=== PATIENT | male | born 1945 ===

== ENCOUNTER 2024-10-06 03:17 | Inpatient (IN) | payer OTHER ==
[~2024-10-06] VITALS: Ht 177.8 cm; Wt 51.6 kg
[2024-10-06 04:14] LABS: BASOPHILS ABSOLUTE AUTO 0.05 K/mm3 (0.00-0.23); BASOPHILS PERCENT AUTO 0 % (0-2); EOSINOPHILS ABSOLUTE AUTO 0.63 K/mm3 (0.00-0.68); EOSINOPHILS PERCENT AUTO 5 % (0-6); Hemoglobin 14.2 g/dL (13.5-17.5); IMMATURE GRAN ABSOLUTE AUTO 0.03 K/mm3 (0.00-0.10); IMMATURE GRAN PERCENT AUTO 0 % (0-1); LYMPHOCYTES ABSOLUTE AUTO 3.17 K/mm3 (0.84-5.20); LYMPHOCYTES PERCENT AUTO 26 % (21-46); MONOCYTES PERCENT AUTO 6 % (4-13); Mean Corpuscular HGB 30.3 pg (26.0-34.0); Mean Corpuscular Volume 92 fL (80-100); Mean Platelet Volume 9.6 fL (9.1-12.4); NEUTROPHILS ABSOLUTE AUTO 7.72 K/mm3 (1.96-9.15); NEUTROPHILS PERCENT AUTO 63 % (41-73); Platelet Count 346 K/mm3 (150-400); RDW Coefficient Variation 14.4 % (11.7-14.2); RDW Standard Deviation 48.8 fL (35.1-46.3); Red Blood Cell Count 4.68 M/mm3 (4.30-5.90)
[2024-10-06 04:31] LABS: Albumin, Blood 3.6 g/dL (3.4-5.0); Bilirubin, Total 0.2 mg/dL (0.1-1.0); Bun/Creatinine Ratio 15.9 (12.0-20.0); Calcium, Blood 8.9 mg/dL (8.5-10.1); Creatinine, Blood 0.88 mg/dL (0.60-1.20); Globulin, Blood 3.5 g/dL (2.2-4.0); Potassium, Blood 3.8 mmol/L (3.5-5.5); Total Protein, Blood 7.1 g/dL (6.4-8.2)
[2024-10-06] MEDS ORDERED: Ipratropium/Albuterol SulF 2.5-0.5MG/3 ML Amp INH ONE (05:00)
[2024-10-06] MEDS ORDERED: Azithromycin 500 MG in NS 250 ML IV ONE (05:05)
[2024-10-06] MEDS ORDERED: CefTRIAXone Sodium 1,000 MG in NS 50 ML IV ONE (05:05)
[2024-10-06] MEDS ORDERED: Aspirin 81 MG Chew PO ONE (05:30)
[2024-10-06] MEDS ORDERED: Ipratropium/Albuterol SulF 2.5-0.5MG/3 ML Amp INH PRN (05:40)
[2024-10-06] MEDS ORDERED: Ondansetron HCl 2 MG / ML 2ML Vial IV PRN (05:40)
[2024-10-06] MEDS ORDERED: NS 1,000 ML IV SCH (05:45)
[2024-10-06] MEDS ORDERED: Remdesivir (EUA) 200 MG in NS 250 ML IV ONE (06:50)
[2024-10-06] MEDS ORDERED: FentaNYL Citrate 50 MCG/ML 2 ML Injection IV PRN (07:25)
[2024-10-06] MEDS ORDERED: Ketorolac Tromethamine 15mg Vial IV PRN ×2 (07:25→13:10)
[2024-10-06] MEDS ORDERED: Enoxaparin 40 MG/0.4 ML SYR SC SCH (09:00)
[2024-10-06] MEDS ORDERED: Azithromycin 500 MG in NS 250 ML IV SCH (09:00)
[2024-10-06 10:00] VITALS: BP 138/78
--- NOTE | 2024-10-06 10:00 | NUR ---
PT TO ROOM FROM ER. ON 2L NC.
[2024-10-06 14:40] LABS: Influenza A, PCR NEGATIVE (NEGATIVE); Influenza B, PCR NEGATIVE (NEGATIVE); Resp Syncytial Virus, PCR NEGATIVE (NEGATIVE); SARS-Cov-2 (COVID-19) PCR, MMC NEGATIVE (NEGATIVE)
[2024-10-06] MEDS ORDERED: PredniSONE 20 MG Tab PO SCH (16:00)
[2024-10-06 16:03] VITALS: BP 132/84
--- NOTE | 2024-10-06 18:00 | NUR ---
SHIFT SUMMARY PT IS A/OX4, INDEPENDENT IN THE ROOM. ON 2L NC, PT REPORTS RA AT BASELINE. ON TELE RUNNING NORMAL SINUS RYTHYM IN THE 70'S. RESP PANEL NEGATIVE. PT REPORTS IMPROVEMENT IN SOB SINCE ADMISSION. INFUSING NS @ 75 ML/HR X1 1 BAG PER MAR. PT REPORTS CHEST PRESSURE ACROSS HIS CHEST IN RELATION TO BREATHING PATTERN. PT IS PLEASANT AND COOPERATIVE WITH CARE.
--- NOTE | 2024-10-06 18:08 | NUR ---
PT REPORTS TAKING BLOOD PRESSURE MEDICATIONS AND CANCER MEDICATIONS AT HOME THOUGH HE IS UNSURE OF THE NAMES AND DOSING. PT'S TO BRING MEDICATION LIST TOMORROW MORNING.
[2024-10-06 20:35] VITALS: BP 135/90
[2024-10-06] MEDS ORDERED: Famotidine 20 MG Tab PO SCH (21:00)
[2024-10-06 23:50] VITALS: BP 130/75
[2024-10-07 03:43] VITALS: BP 135/75
--- NOTE | 2024-10-07 04:57 | NUR ---
SHIFT SUMMARY NOC PT A/O X 4. PLEASANT AND COOPERATIVE WITH CARE. VSS. PT ON 2L/NC SPO2 >95%. CP FROM COUGHING MANAGED PER EMAR. INFUSION OF NS X 1L COMPLETE. PT ON TELE SINUS RHYTHM WITH BBB IN 90'S, RHTYHM STRIP INTERPRETED AND VERIFIED BY RN. PT CURRENTLY RESTING WITH BED IN LOWEST POSITION, AND CALL LIGHT WITHIN REACH.
[2024-10-07 05:25] LABS: BASOPHILS ABSOLUTE AUTO 0.01 K/mm3 (0.00-0.23); BASOPHILS PERCENT AUTO 0 % (0-2); EOSINOPHILS PERCENT AUTO 0 % (0-6); Hematocrit 36.3 % (37.0-53.0); IMMATURE GRAN ABSOLUTE AUTO 0.02 K/mm3 (0.00-0.10); IMMATURE GRAN PERCENT AUTO 0 % (0-1); LYMPHOCYTES ABSOLUTE AUTO 1.09 K/mm3 (0.84-5.20); LYMPHOCYTES PERCENT AUTO 11 % (21-46); MONOCYTES ABSOLUTE AUTO 0.63 K/mm3 (0.16-1.47); MONOCYTES PERCENT AUTO 6 % (4-13); Mean Corpuscular HGB 30.5 pg (26.0-34.0); Mean Corpuscular HGB Conc 33.1 g/dL (31.5-36.5); Mean Corpuscular Volume 92 fL (80-100); NEUTROPHILS ABSOLUTE AUTO 8.26 K/mm3 (1.96-9.15); NEUTROPHILS PERCENT AUTO 83 % (41-73); Platelet Count 290 K/mm3 (150-400); RDW Coefficient Variation 14.4 % (11.7-14.2); Red Blood Cell Count 3.94 M/mm3 (4.30-5.90); White Blood Cell Count 10.01 K/mm3 (4.00-11.30)
[2024-10-07 06:11] LABS: Albumin, Blood 2.9 g/dL (3.4-5.0); Albumin/Globulin Ratio 0.9 (0.8-1.8); Bilirubin, Total 0.4 mg/dL (0.1-1.0); Bun/Creatinine Ratio 22.9 (12.0-20.0); Calcium, Blood 8.5 mg/dL (8.5-10.1); Creatinine, Blood 0.79 mg/dL (0.60-1.20); Globulin, Blood 3.3 g/dL (2.2-4.0); Potassium, Blood 4.2 mmol/L (3.5-5.5); Total Protein, Blood 6.2 g/dL (6.4-8.2)
[2024-10-07 07:31] VITALS: BP 121/79
[2024-10-07] MEDS ORDERED: Guaifenesin/Dextromethorphan Syrup 5 ML UDC PO PRN (07:35)
[2024-10-07] MEDS ORDERED: NUBEQA300 MG PO (09:14)
[2024-10-07] MEDS ORDERED: ATOR10 PO (09:15)
[2024-10-07] MEDS ORDERED: AMLO5 PO (09:16)
[2024-10-07] MEDS ORDERED: PRESERVISION A1 EAC1 PO (09:17)
[2024-10-07] MEDS ORDERED: Remdesivir (EUA) 100 MG in NS 250 ML IV SCH (12:00)
[2024-10-07] MEDS ORDERED: PRED20 PO (12:09)
[2024-10-07] MEDS ORDERED: FAMO20 PO (12:09)
[2024-10-07] MEDS ORDERED: Ventolin5 MG/1 ML INH (12:10)
[2024-10-07] MEDS ORDERED: AZIT250 PO (12:14)
[2024-10-07] MEDS ORDERED: SPIRIVA RESPIMAT4 G3 INH (12:15)
--- NOTE | 2024-10-07 12:57 | NUR ---
PT DISCHARGED TO HOME WITH . ALL VALUABLES RETURNED AND SENT HOME WITH THE PT. DISCHARGE INSTRUCTIONS PROVIDED AND EDUCATED ON AT TIME OF DISCHARGE.
== END 2024-10-07 12:33 | disposition home or self-care (01) | DRG 189 ==
LOC: ER 03:17 → ERHOLD 05:05 → MEDS 09:54
PROVIDERS: Emergency Medicine; Internal Medicine; ADMIT Internal Medicine
PROC: XW033E5 Introduction of Remdesivir Anti-infective into Peripheral Vein, Percutaneous Approach, New Technology Group 5 (ICD-10-PCS; principal; 2024-10-06)
DX: J96.01 Acute respiratory failure with hypoxia (principal); J44.1 Chronic obstructive pulmonary disease with (acute) exacerbation; Z99.81 Dependence on supplemental oxygen; J43.9 Emphysema, unspecified; Z86.16 Personal history of COVID-19
CPT/HCPCS: 0241U; 36415; 71045; 71260; 80053; 83605; 83880; 84484; 85025; 85730; 93005; 93010; 94640; 94664; 99285-25; A9270; J0248; J0456; J0696; J1650; J1885; J7030; J7050; J7512; Q9967

== ENCOUNTER 2024-12-06 15:28 | Observation (INO) | payer OTHER ==
[~2024-12-06] VITALS: Ht 175.3 cm; Wt 67.7 kg
[~2024-12-06 15:28] MED LIST: AMLO5 PO; ATOR10 PO; AZIT250 PO; FAMO20 PO; NUBEQA300 MG PO; PRED20 PO; PRESERVISION A1 EAC1 PO; SPIRIVA RESPIMAT4 G3 INH; Ventolin5 MG/1 ML INH
[2024-12-06 15:52] LABS: BASOPHILS ABSOLUTE AUTO 0.08 K/mm3 (0.00-0.23); BASOPHILS PERCENT AUTO 1 % (0-2); EOSINOPHILS ABSOLUTE AUTO 0.65 K/mm3 (0.00-0.68); EOSINOPHILS PERCENT AUTO 6 % (0-6); Hematocrit 39.9 % (37.0-53.0); Hemoglobin 12.8 g/dL (13.5-17.5); IMMATURE GRAN ABSOLUTE AUTO 0.03 K/mm3 (0.00-0.10); IMMATURE GRAN PERCENT AUTO 0 % (0-1); LYMPHOCYTES ABSOLUTE AUTO 2.35 K/mm3 (0.84-5.20); LYMPHOCYTES PERCENT AUTO 21 % (21-46); MONOCYTES ABSOLUTE AUTO 1.02 K/mm3 (0.16-1.47); MONOCYTES PERCENT AUTO 9 % (4-13); Mean Corpuscular HGB Conc 32.1 g/dL (31.5-36.5); Mean Corpuscular Volume 94 fL (80-100); NEUTROPHILS ABSOLUTE AUTO 7.32 K/mm3 (1.96-9.15); NEUTROPHILS PERCENT AUTO 64 % (41-73); NRBC ABSOLUTE 0.00 K/mm3 (0.00-0.02); NRBC Auto 0.0 /100 WBC (0.0-0.2); Platelet Count 307 K/mm3 (150-400); RDW Coefficient Variation 14.0 % (11.7-14.2); RDW Standard Deviation 47.9 fL (35.1-46.3)
[2024-12-06 16:14] LABS: Alanine Aminotransfer (ALT/SGP 27.0 U/L (12-78); Albumin, Blood 3.5 g/dL (3.4-5.0); Albumin/Globulin Ratio 1.0 (0.8-1.8); Anion Gap 6.0 mmol/L (3-11); Aspartate Aminotrans (AST/SGOT 22.0 U/L (12-37); Bilirubin, Total 0.3 mg/dL (0.1-1.0); Blood Urea Nitrogen 17.0 mg/dL (8-24); CO2, Blood 29.0 mmol/L (21-32); Calcium, Blood 8.6 mg/dL (8.5-10.1); Chloride, Blood 106.0 mmol/L (98-108); Creatinine, Blood 0.81 mg/dL (0.60-1.20); Globulin, Blood 3.6 g/dL (2.2-4.0); Glucose, Blood 104.0 mg/dL (70-99); Potassium, Blood 3.8 mmol/L (3.5-5.5); Sodium, Blood 137.0 mmol/L (136-145); Total Protein, Blood 7.1 g/dL (6.4-8.2)
[2024-12-06 21:17] LABS: C-REACTIVE PROTEIN, EXT RANGE <0.290 mg/dL (0.000-0.300)
[2024-12-06 23:00] LABS: CHOL/HDL RATIO 2.5; Cholesterol 172 mg/dL (50-200); HDL Cholesterol 69 mg/dL (>39); LDL/HDL RATIO 1.1; Low Density Lipoprotein Chol 77 mg/dL (0-110); Magnesium, Blood 2.1 mg/dL (1.6-2.4); Triglycerides 131 mg/dL (30-160); Very Low Density Lipoprot Chol 26 mg/dL (6-32)
[2024-12-06 23:05] LABS: Thyroid Stimulating Hormone 4.410 uIU/mL (0.360-4.800)
[2024-12-06 23:19] VITALS: BP 149/105
--- NOTE | 2024-12-07 00:02 | NUR ---
TELE APPLIED TO PATIENT TELE PLACED ON PT APROX [id number], NORMAL SINUS IN THE 80'S CALL FROM GUEST SERVICES MANAGER AT APROX [phone]; PT HAS 7 BEATS OF BIGEMENY. PT DENIES CP/PRESSURE AT THIS TIME.
[2024-12-07 05:16] VITALS: BP 160/96
--- NOTE | 2024-12-07 06:01 | NUR ---
DRUM PRINTER SUMMARY / NEW ADMIT PT ADMIT FOR ACUTE ONSET CHEST PAIN RELIEVED WITH NITRO. PT A/OX4. INDEPENDENT IN THE ROOM. ABLE TO MAKE NEEDS KNOWN. STEADY ON FEET. ORIENTED TO ROOM AND CALL LIGHT. PT ON TELE; ONE EVENT OF 7 BEAT RUN OF TENISHA. PT SCHEDULED FOR STRESS TEST. KEPT NPO AFTER MIDNIGHT WITH NO CAFFIENE. HOWEVER, PT HAD STRESS TEST IN OF 2024--PER DR MCFADDEN, PT MAY BE REFERRED FOR OUTPATIENT TEST AND KEPT FOR OBSERVATION ONLY. PT REPORTING SLIGHT BURINING SENSATION AND PRESSURE WITH DEEP INSPIRATION. NO ACUTE CHEST PAIN OR RADIATING ARM PAIN. PT PLEASANT AND COOPERATIVE.
[2024-12-07 08:17] VITALS: BP 142/87
[2024-12-07 08:27] LABS: BASOPHILS ABSOLUTE AUTO 0.07 K/mm3 (0.00-0.23); BASOPHILS PERCENT AUTO 1 % (0-2); EOSINOPHILS ABSOLUTE AUTO 0.52 K/mm3 (0.00-0.68); EOSINOPHILS PERCENT AUTO 5 % (0-6); Hematocrit 39.9 % (37.0-53.0); Hemoglobin 13.4 g/dL (13.5-17.5); IMMATURE GRAN ABSOLUTE AUTO 0.02 K/mm3 (0.00-0.10); IMMATURE GRAN PERCENT AUTO 0 % (0-1); LYMPHOCYTES ABSOLUTE AUTO 1.87 K/mm3 (0.84-5.20); LYMPHOCYTES PERCENT AUTO 18 % (21-46); MONOCYTES ABSOLUTE AUTO 1.22 K/mm3 (0.16-1.47); MONOCYTES PERCENT AUTO 12 % (4-13); Mean Corpuscular HGB Conc 33.6 g/dL (31.5-36.5); Mean Corpuscular Volume 91 fL (80-100); NEUTROPHILS ABSOLUTE AUTO 6.80 K/mm3 (1.96-9.15); NEUTROPHILS PERCENT AUTO 65 % (41-73); NRBC ABSOLUTE 0.00 K/mm3 (0.00-0.02); NRBC Auto 0.0 /100 WBC (0.0-0.2); Platelet Count 293 K/mm3 (150-400); RDW Coefficient Variation 14.0 % (11.7-14.2); RDW Standard Deviation 47.0 fL (35.1-46.3)
[2024-12-07 08:42] LABS: Anion Gap 6.0 mmol/L (3-11); Blood Urea Nitrogen 16.0 mg/dL (8-24); CO2, Blood 30.0 mmol/L (21-32); Calcium, Blood 8.9 mg/dL (8.5-10.1); Chloride, Blood 104.0 mmol/L (98-108); Creatinine, Blood 0.83 mg/dL (0.60-1.20); Glucose, Blood 94.0 mg/dL (70-99); Magnesium, Blood 2.2 mg/dL (1.6-2.4); Potassium, Blood 4.0 mmol/L (3.5-5.5); Sodium, Blood 136.0 mmol/L (136-145)
[2024-12-07] MEDS ORDERED: Enoxaparin 40 MG/0.4 ML SYR SC SCH (09:00)
[2024-12-07 11:28] VITALS: BP 136/82
[2024-12-07] MEDS ORDERED: ASPI81CH PO (14:35)
[2024-12-07] MEDS ORDERED: FAMO20 PO (14:35)
--- NOTE | 2024-12-07 15:11 | NUR ---
DISCHARGE: PT D/C @7067 INDEPENDENTLY WITH . PT AWARE TO FOLLOW-UP WITH PCP WITHIN ONE WEEK AND DISCUSS ZIO PATCH APPLICATION WITH PCP. TELE SENT BACK. IV REMOVED BY GLOBAL POSITION SYSTEM TECHNICIAN W/O COMPLICATIONS. NEW MEDICATIONS DISCUSSED WITH PT AND . EXPLAINED NECESSITY TO NOT OVER EXERT SELF AND KEEP ALBUTEROL ON SELF T/O DAY.
== END 2024-12-07 15:06 | disposition home or self-care (01) ==
LOC: ER 15:28 → MEDS 15:29
PROVIDERS: Internal Medicine; Nurse Practitioner Acute Care; Physician Assistant; ADMIT Family Medicine
DX: R07.89 Other chest pain (principal); J44.9 Chronic obstructive pulmonary disease, unspecified; E78.5 Hyperlipidemia, unspecified; I10 Essential (primary) hypertension; D72.829 Elevated white blood cell count, unspecified; D64.9 Anemia, unspecified; Z85.46 Personal history of malignant neoplasm of prostate; Z79.899 Other long term (current) drug therapy
CPT/HCPCS: 36415; 71046; 80048; 80053; 80061; 83036; 83735; 84443; 84484; 85025; 85379; 85651; 86140; 93005; 93010; 96372; 99285-25; A9270; G0378; J1650